=== PATIENT | female | born 2000 | race Caucasian/White ===

== ENCOUNTER → 2024-03-31 | Outpatient (CLI) | payer BC, SELFPAY ==
[2024-03-31 10:40] LABS: Glucose,1 Hour PP 50gm Dose 97 mg/dL (80-140)
== END | disposition home or self-care (01) ==
PROVIDERS: PCP Family Medicine; Referring Provider Specialist; Visit Provider Specialist
DX: Z34.82 Encounter for supervision of other normal pregnancy, second trimester (principal)
CPT/HCPCS: 36415; 82950

== ENCOUNTER → 2024-04-11 | Outpatient (CLI) | payer BC, SELFPAY ==
[2024-04-11 17:29] LABS: Basophils % (Auto) 0 % (0-2.5); Eosinophils # (Auto) 0.1 Thou/mm3 (0.0-0.5); Eosinophils % (Auto) 1 % (0-10); Hematocrit 37.7 % (36.0-46.0); Hemoglobin 12.9 g/dL (12.0-16.0); Immature Granulocytes % (Auto) 1 % (0-0); Immature Granulocytes Auto 0.09 Thou/mm3 (0.00-0.00); Lymphocytes % (Auto) 23 % (10-50); Mean Corpuscular HGB Conc 34.2 g/dl (31.0-37.0); Mean Corpuscular Hemoglobin 28.8 pg (25.0-35.0); Mean Corpuscular Volume 84 fL (80-100); Monocytes # (Auto) 0.9 Thou/mm3 (0.0-0.8); Monocytes % (Auto) 10 % (0-12); Neutrophils % (Auto) 66 % (37-80); Nucleated Red Blood Cell % 0 /100 WBC (0); Platelet Count 243 Thou/mm3 (140-440); RDW Standard Deviation 39.5 fL (36.4-46.3); Red Blood Count 4.48 Miln/mm3 (4.00-5.20)
[2024-04-11 18:01] LABS: Syphilis Nonreactive (Nonreactive)
== END | disposition home or self-care (01) ==
LOC: SLDO 16:50
PROVIDERS: Referring Provider Specialist; Visit Provider Specialist
DX: Z34.83 Encounter for supervision of other normal pregnancy, third trimester (principal)
CPT/HCPCS: 36415; 85025; 86780

== ENCOUNTER 2024-05-29 13:26 | Observation (INO) | payer BC, SELFPAY ==
[2024-05-29 13:33] VITALS: BP 122/86; PULSE 77
[2024-05-29 13:36] VITALS: BP 122/86; PULSE 85; RESP 16; RESP 99; TEMP 36.5; BMI 34.0
[2024-05-29 13:55] VITALS: BP 118/74; PULSE 73
== END 2024-05-29 14:15 | disposition home or self-care (01) ==
LOC: S4SX 13:29
PROVIDERS: Admitting Provider Specialist; Visit Provider Specialist
DX: Z34.83 Encounter for supervision of other normal pregnancy, third trimester (principal); Z3A.36 36 weeks gestation of pregnancy
CPT/HCPCS: 59899

== ENCOUNTER → 2024-06-01 | Outpatient (CLI) | payer BC, SELFPAY ==
[2024-06-02 09:37] LABS: BVAG Candida Negative (Negative); Bacterial Vaginosis Markers Positive (Negative); Candida glabrata Negative (Negative); Candida krusei PCR Negative (Negative); Trichomonas Negative (Negative)
== END | disposition home or self-care (01) ==
LOC: SLDO 15:26
PROVIDERS: Referring Provider Specialist; Visit Provider Specialist
DX: Z34.83 Encounter for supervision of other normal pregnancy, third trimester (principal)
CPT/HCPCS: 81514

== ENCOUNTER 2024-06-25 15:36 | Inpatient (IN) | payer BC, SELFPAY ==
[2024-06-25] VITALS (26 sets, daily range): BP systolic 121–153; BP diastolic 80–109; PULSE 56–81; RESP 16–99; TEMP 36.8; O2SAT 99; BMI 35.0
[2024-06-25 15:21] LABS: ROM Kit Lot # 578010271; ROM Swab Mixed By: HILEL; Swb Mxed in Solvent 1 min? Yes
[2024-06-25 15:24] LABS: Rupture of Fetal Membranes Positive (Negative)
--- NOTE | 2024-06-25 15:36 | PD.LDHP ---
Documentation for date of: 06/25/24 OB Labor/Induct. HPI History of Present Illness Comments: H and P dictated STAT in [facility] [id number] History of Present Adequate Care: Yes Meds Home Medications and Allergies Home Medications ?Medication ?Instructions ?Recorded ?Confirmed ?Type vits no.130-ferrous fum 1 tab PO QDAY 06/25/24 06/25/24 History 27 mg iron-folic acid 800 mcg tablet ( Vitamin) Allergies Allergy/AdvReac Type Severity Reaction Status Date / Time No Known Allergies Allergy Verified 06/25/24 15:00 OB Exam Physical Exam Vital signs: Temp Pulse Resp BP Pulse Ox O2 Del Method 98.2 F 75 16 130/84 99 Room Air 06/25/24 15:03 06/25/24 15:23 06/25/24 15:03 06/25/24 15:23 06/25/24 15:03 06/25/24 15:03
[2024-06-25 16:13] LABS: Collection Type, Urine Clean Catch; RBC,Urine 0 /hpf (0-3)
[2024-06-25 16:16] LABS: Basophils % (Auto) 0 % (0-2.5); Eosinophils % (Auto) 0 % (0-10); Hematocrit 36.6 % (36.0-46.0); Hemoglobin 12.8 g/dL (12.0-16.0); Immature Granulocytes % (Auto) 1 % (0-0); Immature Granulocytes Auto 0.05 Thou/mm3 (0.00-0.00); Lymphocytes # (Auto) 1.8 Thou/mm3 (1.0-4.8); Lymphocytes % (Auto) 30 % (10-50); Mean Corpuscular Hemoglobin 27.2 pg (25.0-35.0); Mean Corpuscular Volume 78 fL (80-100); Monocytes # (Auto) 0.6 Thou/mm3 (0.0-0.8); Monocytes % (Auto) 10 % (0-12); Neutrophils # (Auto) 3.6 Thou/mm3 (1.8-7.7); Neutrophils % (Auto) 60 % (37-80); Nucleated Red Blood Cell % 0 /100 WBC (0); Platelet Count 150 Thou/mm3 (140-440); RDW Standard Deviation 40.2 fL (36.4-46.3); Red Blood Count 4.71 Miln/mm3 (4.00-5.20); White Blood Count 6.1 Thou/mm3 (3.6-11.0)
[2024-06-25 16:20] LABS: Bilirubin,Urine Negative (Negative); Blood,Urine Negative (Negative); Clarity,Urine Clear (Clear/Hazy); Color,Urine Colorless (Lt Yel-Yel); Glucose, Urine Negative (Negative); Ketones,Urine Negative (Negative); Leukocyte Esterase,Urine Negative (Negative); Nitrite,Urine Negative (Negative); Protein,Urine Negative (Neg - Trace); Specific Gravity,Urine 1.005 (1.001-1.035); Squamous Epithelial Cell,Urine < 1 /hpf (0-5); Urobilinogen,Urine Negative mg/dL (0.0-1.0); WBC,Urine < 1 /hpf (0-5)
[2024-06-25 16:37] LABS: Fibrinogen 372 mg/dL (175-375); INR 0.9 (0.9-1.3); Partial Thromboplastin Time 26.3 Seconds (22.0-36.0); Prothrombin Time 10.3 Seconds (9.0-12.2)
[2024-06-25 16:38] LABS: Alanine Aminotransferase 11 U/L (10-49); Albumin, Serum 3.6 gm/dL (3.5-5.0); Albumin/Globulin Ratio 1.4 (1.2-2.2); Alkaline Phosphatase 207 U/L (46-116); Anion Gap 8 (7-16); Aspartate Amino Transferase 21 U/L (0-34); BUN/Creatinine Ratio 11 Ratio (12-20); Bilirubin,Total 0.4 mg/dL (0.3-1.2); Blood Urea Nitrogen 8 mg/dL (9-23); Calcium 8.8 mg/dL (8.3-10.6); Calcium (Corrected) 9.1 mg/dL (8.5-10.1); Carbon Dioxide 22.4 mMol/L (20.0-31.0); Chloride 109 mMol/L (98-107); Creatinine (Component) 0.7 mg/dL (0.6-1.3); Estimated Creatinine Clearance 135.4 mL/min (>60); Globulin 2.6 gm/dL (2.3-3.5); Glucose 74 mg/dL (74-106); Osmolality,Calculated 274 (275-295); Potassium 4.1 mMol/L (3.4-5.1); Sodium 139 mMol/L (136-145); Total Protein 6.2 gm/dL (5.7-8.2); Uric Acid 5.1 mg/dL (3.1-7.8); eGFR > 60 See Note
[2024-06-25] MEDS: RINGERS LACTATED 1000 ML 1,000 ML 100 ML IV (16:45)
[2024-06-25] MEDS: Ampicillin Inj 2,000 MG in SODIUM CHLORIDE 0.9% (POP) 100 ML 200 MG IV ×2 (16:47→22:43)
[2024-06-25 16:54] LABS: Syphilis Nonreactive (Nonreactive)
[2024-06-25] MEDS: MISOPROSTOL 50 mCg TABLET PO ×2 (17:11→21:17)
[2024-06-25] MEDS: ACETAMINOPHEN 325 MG TABLET 975 MG PO (19:13)
[2024-06-26] VITALS (223 sets, daily range): BP systolic 101–149; BP diastolic 56–93; PULSE 51–131; RESP 16–19; TEMP 36.4–37.2; O2SAT 86–100
[2024-06-26] MEDS: ONDANSETRON INJ 2 MG/ML INJ 2 ML 4 MG IV (01:23)
[2024-06-26] MEDS: RINGERS LACTATED 1000 ML 1,000 ML 999 ML IV ×3 (02:12→10:00)
[2024-06-26 03:39] LABS: Gentamicin, Random 1.1 mcg/mL (4.0-10.0)
[2024-06-26] MEDS: Ampicillin Inj 2,000 MG in SODIUM CHLORIDE 0.9% (POP) 100 ML 200 MG IV ×2 (04:30→10:17)
--- NOTE | 2024-06-26 07:49 | ESHP_ITS ---
RE: MYNOR DIALLO : 2000 DATE OF ADMISSION: 06/25/2024 HISTORY OF PRESENT ILLNESS: This is a 24-year-old 2, para 0-0-1-0 with a due date of 06/23 with intrauterine at 40 weeks and 2 days who presents for headache, blurred vision and leaking fluid since 06/24. Aminosure is positive. Urine is negative for protein. A few BPs are diastolic > 90. Reports occasional contractions. No bleeding. Reports normal movement. She has occasional contractions. Her most recent ultrasound on 05/25/2024 shows overall growth at the 33rd percentile. Her group B strep vaginal swab was negative at 36-37 weeks however the patient was treated for group B strep urinary tract infection on 02/22/2024. She is RH negative and she received RhoGAM at 28 weeks. MEDICATIONS: multivitamin 1 tablet p.o. daily. SOCIAL HISTORY: She denies any alcohol, drug use, or smoking. PAST MEDICAL HISTORY: Denies. PAST SURGICAL HISTORY: Denies. OBSTETRIC HISTORY: Termination of , 06/28/2023. REVIEW OF SYSTEMS: She denies any headache, change in vision, or right upper quadrant pain. She denies any chest pain, palpitations, shortness of breath, or lower extremity pain. PHYSICAL EXAMINATION: Vital Signs: Blood pressure 137/79, heart rate 88, respirations 18, temperature 38.2, weight 198 pounds. HEENT: Oropharynx and sclerae are clear. Lungs: Clear to auscultation bilaterally. Heart: Regular rate and rhythm. Abdomen: Gravid, term size consistent with estimated weight, 7.5 pounds. Pelvic: See RN notes. Extremities: Nontender. Skin: No gross rashes or lesions. Neurologic: No focal deficits. ASSESSMENT AND PLAN: Intrauterine at 40 weeks and 2 days. Prolonged rupture of membranes Gestational Hypertension- Borderline. PIH labs wnl. GBS UTI in First Trimester. Begin Ampicillin/Gentamycin to prevent chorioamnionitis. Begin Cytotec for Cervical Ripening. Anticipate spontaneous vaginal delivery. Informed consent was obtained. The patient was made aware of the risks, complications, alternatives, and benefits of operative vaginal delivery and delivery and agrees with these modes of delivery if indicated. DT: 19:46:45 TT: 20:06:00 Ref: [id number] - TID: [id number] MTDD
[2024-06-26] MEDS: OXYTOCIN in NS 20 units 20 UNIT/1,000 ML BAG 125 UNIT IV (13:14)
[2024-06-26] MEDS: LIDOCAINE HCL 1% 20 ML VIAL INFL (13:22)
[2024-06-26] MEDS: IBUPROFEN TAB 400 MG TABLET 800 MG PO (13:23)
--- NOTE | 2024-06-26 13:57 | ESDS_ITS ---
DS: Providers Provider Date of admission: 06/25/24 15:36 Primary care physician: Physician No Primary/Family Admitting Provider: Jonathan Grant MD Attending Provider on Admission: Jonathan Grant MD Attending Provider on DC: Jonathan Grant MD Discharging Provider: Jonathan Grant MD DS: Diagnosis Problem List Completed Was Problem List Reviewed/Reconciled?: Yes Summary/Hosp Course Time Spent with Patient Time attestation: Total time spent providing and/or coordinating discharge services: Exam Vital Signs Temp Pulse Resp BP Pulse Ox O2 Del Method 98.9 F 81 18 128/62 99 Room Air 06/26/24 11:53 06/26/24 13:55 06/26/24 11:53 06/26/24 13:55 06/26/24 13:43 06/25/24 15:03 Discharge Plan Plan Patient Disposition: HOME (Self Care) Patient condition on transfer: Stable Prescriptions/Referrals Prescriptions/Med Rec: New ibuprofen 600 mg tablet 600 mg PO Q6H PRN (Reason: pain) Qty: 30 0RF Continued Vitamin 27 mg iron- 800 mcg tablet 1 tab PO QDAY Referrals: No Primary/Family,Physician [Primary Care Provider] - Patient/Caregiver Discharge Instructions Discharge Activity: activity as tolerated Other Discharge Activity Instructions:: Follow up office 6 wks. Print Language: Persian Stand Alone Forms: Tarah Award Info., Patient Portal Info Letter Discharge Order Discharge Orders: Discharge (Routine); Ordered 06/27/24 Ordered By: Jonathan Grant Planned Discharge Date 06/27/2024
--- NOTE | 2024-06-26 13:58 | PD.LDDELS ---
Data ([facility]) Data : 2 Para: 0 Term: 0 : 0 : 1 Delivery Data ([facility]) Labor Data ROM Date: 06/24/24 ROM Time: 15:00 Rupture Type: SROM Amniotic Fluid: Clear Delivery Data EDC: 06/23/24 EDC calculated by:: LMP/early US confirmation Labor Onset Stage 1 Date: 06/26/24 Labor Onset Stage 1 Time: 04:00 Labor Onset Stage 2 Date: 06/26/24 Labor Onset Stage 2 Time: 12:15 Delivery Date: 06/26/24 Delivery Time: 13:13 Gestational age (weeks): 40 Gestational age (days): 3 Placenta Delivery Date: 06/26/24 Placenta Delivery Time: 13:18 Delivered by: Jonathan Grant Delivery nurse: Brandi Barger Other staff at delivery: Nurse Other staff at delivery: Marleny Stringer Delivery Method Delivery: Vaginal Delivery Type: Spontaneous Presentation: Vertex Position: OA Anesthesia Type Primary Anesthesia: Epidural Placenta Placenta Delivery: Spontaneous Placenta Cultures Obtained: No Placenta Sent for Examination: No Cord Sample: Cord Blood Obtained Lacerations #1: Perineal: 2nd degree Perineal repair Sutures used for repair: 3.0 Chromic EBL Estimated blood loss (ml): 200 Umbilical Cord Nuchal Cord: None Additional Procedures None Complications Complications: None Data ([facility]) [place] Data Infant Gender: Female Infant Weight Grams: 3430 1 Minute Total: 9 5 Minute Total: 9
[2024-06-26] MEDS: BENZO/LANO/ALOE (Dermoplast) 60 GM CAN 1 SPRAY TOP (14:03)
[2024-06-26] MEDS: ACETAMINOPHEN 325 MG TABLET 650 MG PO (19:17)
[2024-06-26 21:22] LABS: Basophils % (Auto) 0 % (0-2.5); Eosinophils % (Auto) 0 % (0-10); Hematocrit 34.9 % (36.0-46.0); Hemoglobin 11.7 g/dL (12.0-16.0); Immature Granulocytes % (Auto) 1 % (0-0); Lymphocytes # (Auto) 2.3 Thou/mm3 (1.0-4.8); Lymphocytes % (Auto) 15 % (10-50); Mean Corpuscular HGB Conc 33.5 g/dl (31.0-37.0); Mean Corpuscular Hemoglobin 26.9 pg (25.0-35.0); Mean Corpuscular Volume 80 fL (80-100); Monocytes # (Auto) 1.3 Thou/mm3 (0.0-0.8); Monocytes % (Auto) 9 % (0-12); Neutrophils # (Auto) 11.6 Thou/mm3 (1.8-7.7); Neutrophils % (Auto) 75 % (37-80); Nucleated Red Blood Cell % 0 /100 WBC (0); Platelet Count 162 Thou/mm3 (140-440); RDW Standard Deviation 43.8 fL (36.4-46.3); Red Blood Count 4.35 Miln/mm3 (4.00-5.20); White Blood Count 15.4 Thou/mm3 (3.6-11.0)
[2024-06-27] MEDS: IBUPROFEN TAB 400 MG TABLET 800 MG PO (03:21)
[2024-06-27 03:55] VITALS: BP 111/72; PULSE 80; RESP 16; TEMP 36.4; O2SAT 95
--- NOTE | 2024-06-27 06:32 | ESPR_ITS ---
RE: MYNOR DIALLO : 2000 DATE OF SERVICE: 06/27/2024 SUBJECTIVE: day #1, patient denies any problem or complaint. She is voiding. She is ambulating. She is tolerating her regular diet. She is passing flatus. She denies any excessive vaginal bleeding. She denies any dizziness or lightheadedness. She denies any chest pain, palpitations, shortness of breath or lower extremity pain. She denies any depression or anxiety. OBJECTIVE: Vital Signs: Blood pressure 111/72, heart rate 88, respirations 16, temperature is 97.5, and pulse oximetry 95% on room air. Lungs: Clear to auscultation bilaterally. Heart: Regular rate and rhythm. Abdomen: Fundus is firm and nontender. Extremities: Nontender. LABORATORY DATA: Hemoglobin pre-delivery is 12.8 and post-delivery is 11.7. ASSESSMENT AND PLAN: day #1, status post spontaneous vaginal delivery, prolonged rupture of membranes, but received ampicillin and gentamicin and remains afebrile. Plan to discharge home when baby is cleared. Discharge instructions given. Follow up in the office in 6 weeks. DT: 06:17:14 TT: 06:30:00 Ref: [id number] - TID: [id number]
[2024-06-27 08:45] VITALS: BP 136/97; PULSE 75; RESP 18; TEMP 36.6; O2SAT 98
[2024-06-27] MEDS: ACETAMINOPHEN 325 MG TABLET 650 MG PO (09:11)
--- NOTE | 2024-06-27 12:09 | PC.SS ---
ATHLETICS DIRECTOR conducted bedside contact with the patient to address nursing referral indicating patient possessed history of anxiety/depression.? ATHLETICS DIRECTOR introduced self and role.? At bedside with patient was FOB, Ramiro Noyola.? Patient gave permission for FOB to be present during discussion.? Patient confirmed past history of depression.? Patient shared possessing low level of anxiety.? Per patient, level of anxiety has not impaired daily functioning.? Patient is not prescribed medication to address anxiety.? Patient denies history of mental health.? Patient denies history of self-harm behaviors or psychiatric placement.? Patient?s spouse confirmed that patient?s level of anxiety is not impacting daily functioning in an adverse manner.? , Liliane; is the patient?s first child.? Infant delivered naturally.? Patient interacting appropriate with infant.? OB services provided by Dr. Grant.? Patient reports compliance with OB appointments.? Patient plans on breast feeding the infant.? Patient is not aligned with WIC, SNAP or TANF.? Patient denies history of alcohol/drug use.? Patient denies episodes of domestic violence.? Patient has access to appropriate supplies and equipment.? FOB will provide transportation upon discharge.? Patient describes possessing support system consisting of spouse and extended family.? ATHLETICS DIRECTOR provided community resources to include [employer] and [employer] [facility].? No further intervention required at this time, vp digital marketing social media and crm will be available to address any further concerns.? ATHLETICS DIRECTOR updated bedside nurse.?
[2024-06-27 13:00] VITALS: BP 126/78; PULSE 77; RESP 16; TEMP 36.9; O2SAT 98
== END 2024-06-27 14:30 | disposition home or self-care (01) | DRG 806 ==
LOC: S4S1 15:42 → S4SX 06-26 06:25 → S4NX 06-26 15:56
PROVIDERS: Admitting Provider Specialist; Referring Provider Specialist; Visit Provider Specialist
DX: O48.0 Post-term pregnancy (principal); O23.43 Unspecified infection of urinary tract in pregnancy, third trimester; Z37.0 Single live birth; O26.893 Other specified pregnancy related conditions, third trimester; Z67.41 Type O blood, Rh negative; O13.4 Gestational [pregnancy-induced] hypertension without significant proteinuria, complicating childbirth; O70.1 Second degree perineal laceration during delivery; Z3A.40 40 weeks gestation of pregnancy; O42.92 Full-term premature rupture of membranes, unspecified as to length of time between rupture and onset of labor
CPT/HCPCS: 36415; 59409; 80053; 80170; 81001; 84112; 84550; 85025; 85384; 85461; 85610; 85730; 86780; 86850; 86900; 86901; 94762; J0290; J1580; J2405; J2590; J2790; J2795; J3010; J3490; J7050; J7120; A9270